=== PATIENT | male | born 1995 | race Caucasian/White ===

== ENCOUNTER 2018-12-17 16:33 | Emergency (ER) | payer OTHER ==
[~2018-12-17] VITALS: Ht 167.6 cm; Wt 63.6 kg
[2018-12-17 16:55] VITALS: Ht 167.6 cm; Wt 63.6 kg
[2018-12-17] MEDS ORDERED: CLEOCIN HCL300 MG PO (18:37)
[2018-12-17] MEDS ORDERED: TORADOL10 MG PO (18:37)
[2018-12-17 19:25] VITALS: BP 135/74
== END 2018-12-17 19:26 | disposition home or self-care (01) ==
LOC: D.ER 16:33
DX: J02.0 Streptococcal pharyngitis (principal); F17.200 Nicotine dependence, unspecified, uncomplicated